=== PATIENT | male | born 1975 ===

== ENCOUNTER 2017-07-03 13:36 | Outpatient (CLI) | payer OTHER | END 2017-07-03 13:37 | disposition home or self-care (01) | LOC: SC 13:36 | PROVIDERS: ATTEND Specialist | DX: G47.30 Sleep apnea, unspecified (principal); R51 Headache; E66.9 Obesity, unspecified; R53.83 Other fatigue; R06.83 Snoring | CPT/HCPCS: 99205; 99212 ==

== ENCOUNTER 2017-08-28 19:25 | Outpatient (CLI) | payer OTHER | END 2017-08-28 19:26 | disposition home or self-care (01) | LOC: SC 19:25 | PROVIDERS: ATTEND Internal Medicine Pulmonary Disease | DX: G47.33 Obstructive sleep apnea (adult) (pediatric) (principal) | CPT/HCPCS: 95810 ==

== ENCOUNTER 2017-10-01 14:33 | Outpatient (CLI) | payer OTHER | END 2017-10-01 14:34 | disposition home or self-care (01) | LOC: SC 14:33 | PROVIDERS: ATTEND Nurse Practitioner Family | DX: G47.33 Obstructive sleep apnea (adult) (pediatric) (principal) | CPT/HCPCS: 99212; 99214 ==